=== PATIENT | female | born 1975 | race Hispanic/Latino ===

== ENCOUNTER → 2024-04-26 | Outpatient (CLI) | payer OTHER | END | disposition home or self-care (01) | LOC: SHCH 12:34 | PROVIDERS: ATTEND Internal Medicine Cardiovascular Disease | DX: I87.1 Compression of vein (principal); I87.2 Venous insufficiency (chronic) (peripheral); I73.9 Peripheral vascular disease, unspecified; R09.89 Other specified symptoms and signs involving the circulatory and respiratory systems | CPT/HCPCS: 93880; 93925; 93970 ==

== ENCOUNTER → 2024-07-01 | Outpatient (CLI) | payer OTHER | END | disposition home or self-care (01) | LOC: SHCH 07:54 | PROVIDERS: ATTEND Internal Medicine Cardiovascular Disease | DX: R07.9 Chest pain, unspecified (principal) | CPT/HCPCS: 93306 ==

== ENCOUNTER → 2024-12-14 | Outpatient (CLI) | payer OTHER | END | disposition home or self-care (01) | LOC: SHCH 13:12 | PROVIDERS: ATTEND Internal Medicine Cardiovascular Disease | DX: I87.2 Venous insufficiency (chronic) (peripheral) (principal); I87.1 Compression of vein | CPT/HCPCS: 93970 ==

== ENCOUNTER → 2024-12-26 | Outpatient (CLI) | payer OTHER ==
--- NOTE | 2024-12-26 14:25 | HMCSR ---
APPROVED REPORT Laterality: Bilateral Indications Claudication: , PAD, STAT VELOCITY AND DOPPLER WAVEFORM ANALYSIS BARIATRIC COORDINATOR (R) 135.3cm/sec, Triphasic, BARIATRIC COORDINATOR (L) 129.8cm/sec, Triphasic, Prof Fem Art. (R) 70.0cm/sec, Triphasic, Prof Fem Art. (L) 75.9cm/sec, Triphasic, Fem Art Prox. (R) 90.6cm/sec, Triphasic, Fem Art Prox. (L) 104.9cm/sec, Triphasic, Fem Art Mid. (R) 87.9cm/sec, Triphasic, Fem Art Mid. (L) 95.1cm/sec, Triphasic, Fem Art Dist (R) 95.1cm/sec, Triphasic, Fem Art Dist. (L) 64.2cm/sec, Triphasic, Pop Art(AK) (R) 69.1cm/sec, Triphasic, Pop Art (AK) (L) 75.9cm/sec, Triphasic, Pop Art (Fossa)(R) 52.5cm/sec, Triphasic, Pop Art (Fossa) (L) 59.4cm/sec, Triphasic, Pop Art(BK) (R) 68.3cm/sec, Triphasic, Pop Art (BK) (L) 75.4cm/sec, Triphasic, ACCOUNT DEVELOPMENT SPECIALIST Prox. (R) 97.8cm/sec, Triphasic, ACCOUNT DEVELOPMENT SPECIALIST Prox. (L) 64.6cm/sec, Triphasic, ACCOUNT DEVELOPMENT SPECIALIST Mid. (R) 86.1cm/sec, Triphasic, ACCOUNT DEVELOPMENT SPECIALIST Mid. (L) 109.0cm/sec, Triphasic, ACCOUNT DEVELOPMENT SPECIALIST Dist. (R) 82.5cm/sec, Triphasic, ACCOUNT DEVELOPMENT SPECIALIST Dist. (L) 82.5cm/sec, Triphasic, Per Art Prox. (R) 51.6cm/sec, Biphasic, Per Art Prox. (L) 34.1cm/sec, Biphasic, Per Art Mid. (R) 46.5cm/sec, Biphasic, Per Art Mid. (L) 36.8cm/sec, Biphasic, Per Art Dist. (R) 38.7cm/sec, Biphasic, Per Art Dist. (L) 44.9cm/sec, Biphasic, LANDON Prox. (R) 98.0cm/sec, Triphasic, LANDON Prox. (L) 106.5cm/sec, Triphasic, LANDON Mid. (R) 79.0cm/sec, Triphasic LANDON Mid. (L) 85.7cm/sec, Triphasic, LANDON Dist. (R) 96.0cm/sec, Triphasic, LANDON Dist. (L) 110.4cm/sec, Triphasic, Technologist Impression No evidence of significant arterial insufficiency of bilateral lower extremities. Conclusion No evidence of significant arterial insufficiency of bilateral lower extremities. Conclusion No evidence of significant arterial insufficiency of bilateral lower extremities.
== END | disposition home or self-care (01) ==
LOC: SHCH 11:36
PROVIDERS: ATTEND Internal Medicine Cardiovascular Disease
DX: I73.9 Peripheral vascular disease, unspecified (principal)
CPT/HCPCS: 93925